=== PATIENT | male | born 2000 | race Caucasian/White ===

== ENCOUNTER 2019-03-17 17:44 | Emergency (ER) | payer BC, SELFPAY ==
--- NOTE | 2019-03-17 19:02 | ER ---
Nurse's Notes [facility] Name: Nic Servin Age: 18 yrs Sex: Male : 2000 Arrival Date: 03/17/2019 Time: 17:45 Bed 19 Private MD: Diagnosis: Streptococcal tonsillitis Presentation: 03/17 17:50 Presenting complaint: Patient states: Sore throat, chest pain, dizziness for the past aj1 week. Reports subjective fever. Transition of care: patient was not received from another setting of care. Onset of symptoms was March 11, 2019. Risk Assessment: Do you want to hurt yourself or someone else? Patient reports no desire to harm self or others. Initial Sepsis Screen: Does the patient meet any 2 criteria? No. Patient's initial sepsis screen is negative. Does the patient have a suspected source of infection? No. Patient's initial sepsis screen is negative. Care prior to arrival: None. 17:50 Method Of Arrival: Ambulatory aj1 17:50 Acuity: MARY LOU 4 aj1 Triage Assessment: 17:51 General: Appears in no apparent distress. comfortable, Behavior is calm, cooperative, aj1 appropriate for age. Pain: Complains of pain in chest, left aspect of posterior pharynx and right aspect of posterior pharynx Pain currently is 8 out of 10 on a pain scale. EENT: Reports sore throat. Neuro: Level of Consciousness is awake, alert, obeys commands. Cardiovascular: Patient's skin is warm and dry. Respiratory: Airway is patent Respiratory effort is even, unlabored, Respiratory pattern is regular, symmetrical. Historical: - Allergies: 17:51 No Known Allergies; aj1 - Home Meds: 17:51 None [Active]; aj1 - PMHx: 17:51 None; aj1 - PSHx: 17:51 None; aj1 - Immunization history:: Flu vaccine is up to date. - Social history:: Smoking status: Patient/guardian denies using tobacco. - Ebola Screening: : Patient denies travel to an Ebola-affected area in the 21 days before illness onset. Screenin:12 Abuse screen: Denies threats or abuse. Nutritional screening: No deficits noted. em Tuberculosis screening: No symptoms or risk factors identified. Fall Risk None identified. Assessment: 18:12 General: Appears in no apparent distress. comfortable, Behavior is calm, cooperative, em Reports fever for 12-24 hours. Pain: Complains of pain in chest and right aspect of posterior pharynx and left aspect of posterior pharynx Pain currently is 8 out of 10 on a pain scale. Neuro: Level of Consciousness is awake, alert, obeys commands, Oriented to person, place, time, situation, Appropriate for age. Cardiovascular: Reports chest pain, Heart tones S1 S2 present Capillary refill < 3 seconds Patient's skin is warm and dry. Respiratory:. Respiratory: Reports cough that is pain with cough Airway is patent Respiratory effort is even, unlabored, Respiratory pattern is regular, symmetrical, Breath sounds are clear bilaterally. GI: Reports nausea, vomiting. Derm: Skin is intact, is healthy with good turgor, Skin is pink, warm \T\ dry. Musculoskeletal: Capillary refill < 3 seconds, Range of motion: intact in all extremities. 18:12 EENT: Nares are clear Oral mucosa is moist. Throat is reddened has enlarged tonsils em Reports difficulty swallowing. 18:15 General: The previous assessment is accurate, call light remains within reach.. ss 19:01 Reassessment: Patient appears in no apparent distress at this time. Patient and/or em family updated on plan of care and expected duration. Pain level reassessed. Patient is alert, oriented x 3, equal unlabored respirations, skin warm/dry/pink. given water for PO challenge. Vital Signs: 17:51 BP 120 / 69; Pulse 96; Resp 16; Temp 99.4; Pulse Ox 100% on R/A; Weight 72.57 kg (R); aj1 Height 5 ft. 11 in. (180.34 cm); Pain 8/10; 17:51 Body Mass Index 22.32 (72.57 kg, 180.34 cm) 1 ED Course: 17:45 Patient arrived in ED. as 17:51 Triage completed. aj1 17:51 Arm band placed on Patient placed in an exam room. aj1 17:53 Qing Ames NP is PHCP. rh1 17:53 Enrrique Garza MD is Attending Physician. 1 17:59 Miles Anand LVN is Primary Nurse. em 18:12 Patient has correct armband on for positive identification. Placed in gown. Bed in low em position. 18:20 Initial lab(s) drawn, by me, sent to lab. Flu and/or RSV swab sent to lab. Strep swab kj1 sent to lab. Inserted saline lock: 22 gauge in right antecubital area, using aseptic technique. 18:36 Chest Single View XRAY In Process Unspecified. EDMS 18:59 X-ray completed. Portable x-ray completed in exam room. Patient tolerated procedure 1 well. 19:15 No provider procedures requiring assistance completed. IV discontinued, intact, em bleeding controlled, No redness/swelling at site. Pressure dressing applied. Administered Medications: No medications were administered Outcome: 19:01 Discharge ordered by . rh1 19:16 Discharged to home ambulatory. em 19:16 Condition: good 19:16 Discharge instructions given to patient, Instructed on discharge instructions, follow up and referral plans. medication usage, Demonstrated understanding of instructions, follow-up care, medications, Prescriptions given X 1. 19:16 Patient left the ED. em Signatures: Dispatcher [employer] [facility] Alyssa Chin RN RN 1 Priscila Buck 1 Miles Anand, INGREDIENT SCALER INGREDIENT SCALER em Muna Mirza Shelby, RN RN Qing Figueredo NP [employer]PER[employer] 1 Shiloh Lucero kj1 Corrections: (The following items were deleted from the chart) 18:43 18:12 Derm: Skin is intact, is healthy with good turgor, Skin is pink, warm \T\ dry. em em
--- NOTE | 2019-03-17 19:03 | EDPHYS ---
Physician Documentation [facility] Name: Nic Servin Age: 18 yrs Sex: Male : 2000 Arrival Date: 03/17/2019 Time: 17:45 Bed 19 Private MD: ED Physician Enrrique Garza HPI: 03/17 17:57 This 18 yrs old Male presents to ER via Ambulatory with complaints of Sore rh1 Throat, Dizziness. 17:57 The patient presents with sore throat. The patient describes throat pain as constant, rh1 scratchy. Onset: The symptoms/episode began/occurred 1 week(s) ago, and became worse today. Severity of symptoms: At their worst the symptoms were moderate, in the emergency department the symptoms are unchanged. Modifying factors: The symptoms are alleviated by nothing, the symptoms are aggravated by foods, swallowing, Patient's oral intake status: good The patient has had contact with sick son, dx with bronchitis. Associated signs and symptoms: Pertinent positives: dysphagia, fever, flu-like symptoms, headache, Sore throat vomiting, Pertinent negatives cough, diarrhea, earache, nausea, rhinorrhea, shortness of breath. The patient has not experienced similar symptoms in the past. The patient has not recently seen a physician. Began with sore throat, fatigue, body aches and chest congestion 1 week ago, worse today. Subjective fever/chills at home. Denies any coughing today, reports feels the need to cough, but has pain in the throat and chest with coughing so does not cough. Reports ERICKSON behind the eyes today, with sensitivity to light, some nausea and emesis x 3 yesterday. Has been drinking liquids today with emesis. Denies any overt chest pain, no SOB, no dyspnea, or hemoptysis. . Historical: - Allergies: 17:51 No Known Allergies; aj1 - Home Meds: 17:51 None [Active]; aj1 - PMHx: 17:51 None; aj1 - PSHx: 17:51 None; aj1 - Immunization history:: Flu vaccine is up to date. - Social history:: Smoking status: Patient/guardian denies using tobacco. - Ebola Screening: : Patient denies travel to an Ebola-affected area in the 21 days before illness onset. ROS: 18:08 Constitutional: Negative for fever, chills, and weight loss. rh1 18:08 Constitutional: Positive for body aches, chills, fatigue, malaise, Negative for poor PO intake. 18:08 Eyes: Negative for acute changes. 18:08 ENT: Positive for sore throat, Negative for nasal discharge, difficulty handling secretions. 18:08 Neck: Negative for pain with movement, pain at rest. 18:08 Cardiovascular: Negative for chest pain, edema, orthopnea, palpitations. 18:08 Respiratory: Positive for cough, Negative for hemoptysis, shortness of breath, wheezing. 18:08 Abdomen/GI: Positive for nausea and vomiting, Negative for abdominal pain, diarrhea. 18:08 Back: Negative for decreased range of motion, pain at rest, pain with movement, radiated pain. 18:08 : Negative for small amounts. 18:08 MS/extremity: Negative for decreased range of motion, pain, paresthesias. 18:08 Skin: Negative for diaphoresis, rash. 18:08 Neuro: Positive for headache, Negative for numbness, tingling, weakness. Exam: 17:57 Constitutional: This is a well developed, well nourished patient who is awake, alert, rh1 and in no acute distress. Head/Face: Normocephalic, atraumatic. 17:57 Neck: Trachea midline, and no cervical lymphadenopathy. Supple, full range of motion without nuchal rigidity. No Meningismus. Chest/axilla: Normal chest wall appearance and motion. Nontender with no deformity. No lesions are appreciated. 17:57 Cardiovascular: Regular rate and rhythm with a normal S1 and S2. No gallops, murmurs, or rubs. No JVD. No pulse deficits. Respiratory: Lungs have equal breath sounds bilaterally, clear to auscultation. No rales, rhonchi or wheezes noted. No increased work of breathing. Abdomen/GI: Soft, non-tender, with normal bowel sounds. No distension. No guarding or rebound. No evidence of tenderness throughout. Back: No spinal tenderness. No costovertebral tenderness. Full range of motion. Skin: Warm, dry with normal turgor. Normal color with no rashes, no lesions, and no evidence of cellulitis. MS/ Extremity: Pulses equal, no cyanosis. Neurovascular intact. Full, normal range of motion. 17:57 ENT: External ear(s): are unremarkable, Ear canal(s): are normal, clear, no cerumen impaction, no erythema, no foreign body, no purulent discharge, no swelling, TM's: are normal, no evidence of bulging, no dullness, no erythema, no fluid levels, Nose: Nasal septum: is midline, Nasal mucosa: edematous, erythematous, Turbinates: are swollen bilaterally, nasal drainage, is not appreciated, Mouth: is normal, no lip abnormalities, no mucosal abnormalities, Posterior pharynx: Airway: normal, Tonsils: bilaterally enlarged, with erythema, no exudate, no ulcerations, Uvula: normal, midline, non-edematous, no erythema, swelling, that is mild, erythema, that is moderate. 17:57 Neck: ROM/movement: Meningeal signs: are not present, Kernig's sign is negative, Brudzinski's sign is negative. 17:57 Neuro: Orientation: is normal, appropriate for stated age, to person, place \T\ time. Mentation: is normal, lucid, able to follow commands, Motor: is normal, moves all fours, strength is 5/5 in all extremities, Sensation: is normal, no obvious gross deficits, numbness, is not appreciated, tingling, is not appreciated, Gait: is steady, at a normal pace, without difficulty. Vital Signs: 17:51 BP 120 / 69; Pulse 96; Resp 16; Temp 99.4; Pulse Ox 100% on R/A; Weight 72.57 kg (R); aj1 Height 5 ft. 11 in. (180.34 cm); Pain 8/10; 17:51 Body Mass Index 22.32 (72.57 kg, 180.34 cm) [facility] MDM: 17:57 Patient medically screened. [facility] 19:01 Data reviewed: vital signs, nurses notes, lab test result(s), and as a result, I will [facility] discharge patient. Data interpreted: Pulse oximetry: on room air is 100 %. Interpretation: normal. Counseling: I had a detailed discussion with the patient and/or guardian regarding: the historical points, exam findings, and any diagnostic results supporting the discharge/admit diagnosis, lab results, radiology results, the need for outpatient follow up, a family practitioner, to return to the emergency department if symptoms worsen or persist or if there are any questions or concerns that arise at home. Special discussion: I discussed with the patient/guardian in detail that at this point there is no indication for admission to the hospital. It is understood, however, that if the symptoms persist or worsen the patient needs to return immediately for re-evaluation. 03/17 18:05 Order name: Flu; Complete Time: 19:00 rh1 03/17 18:05 Order name: Strep; Complete Time: 18:45 rh1 03/17 18:05 Order name: [place] Screen Profile; Complete Time: 19:01 rh1 03/17 18:08 Order name: Chest Single View XRAY rh1 03/17 18:08 Order name: PO challenge; Complete Time: 18:52 rh1 Administered Medications: No medications were administered Disposition: 03/18 07:37 Co-signature as Attending Physician, Enrrique Garza MD. rn Disposition: 03/17/19 19:01 Discharged to Home. Impression: Streptococcal tonsillitis. - Condition is Stable. - Discharge Instructions: Strep Throat. - Prescriptions for Amoxicillin 875 mg Oral Tablet - take 1 tablet by ORAL route every 12 hours for 10 days; 20 tablet. - Medication Reconciliation Form, Thank You Letter, Antibiotic Education, Prescription Opioid Use form. - Follow up: Private Physician; When: 1 - 2 days; Reason: Recheck today's complaints, Continuance of care, Re-evaluation by your physician. Follow up: Emergency Department; When: As needed; Reason: If symptoms return, Worsening of condition. - Problem is new. - Symptoms have improved. Signatures: Dispatcher [employer] Alyssa Ruiz RN RN aj1 Miles Anand, SWIMMING POOL SERVICEPERSON SWIMMING POOL SERVICEPERSON Enrrique Buitrago MD MD rn Jones, Rachel, LLUVIA GRAIN ELEVATOR MAN rh1 Corrections: (The following items were deleted from the chart) 03/17 18:10 17:57 Began with sore throat, fatigue, body aches and chest congestion 1 week ago, rh1 worse today. Subjective fever/chills at home. Denies any coughing today, reports feels the need to cough, but has pain in the throat and chest with coughing so does not cough.. rh1 19: 19:01 Counseling: I had a detailed discussion with the patient and/or guardian 1 regarding: the historical points, exam findings, and any diagnostic results supporting the discharge/admit diagnosis, lab results, the need for outpatient follow up, a family practitioner, to return to the emergency department if symptoms worsen or persist or if there are any questions or concerns that arise at home, rh1 19:16 19:01 03/17/2019 19:01 Discharged to Home. Impression: Streptococcal tonsillitis. em Condition is Stable. Discharge Instructions: Strep Throat. Prescriptions for Amoxicillin 875 mg Oral Tablet - take 1 tablet by ORAL route every 12 hours for 10 days; 20 tablet. and Forms are Medication Reconciliation Form, Thank You Letter, Antibiotic Education, Prescription Opioid Use. Follow up: Private Physician; When: 1 - 2 days; Reason: Recheck today's complaints, Continuance of care, Re-evaluation by your physician. Follow up: Emergency Department; When: As needed; Reason: If symptoms return, Worsening of condition. Problem is new. Symptoms have improved. rh1
--- NOTE | 2019-03-17 19:51 | RAD REPORT ---
EXAM DESCRIPTION: RAD - Chest Single View - 03/17/2019 6:35 pm CLINICAL HISTORY: Chest pain COMPARISON: None. TECHNIQUE: AP portable chest image was obtained 1832 hours . FINDINGS: Lungs are clear. Heart and vasculature are normal. No measurable pleural effusion and no p neumothorax. No acute bony abnormality seen. No acute aortic findings suspected. IMPRESSION: No acute cardiopulmonary process.
[2019-03-17 22:53] VITALS: BP 120/69; TEMP 99.4; O2SAT 100
== END 2019-03-17 19:16 | disposition home or self-care (01) ==
LOC: ER 17:44
DX: J03.00 Acute streptococcal tonsillitis, unspecified (principal)
CPT/HCPCS: 36415; 71045; 86308; 87081; 87804; 99284

== ENCOUNTER 2019-09-24 18:58 | Emergency (ER) | payer SELFPAY ==
--- NOTE | 2019-09-24 20:13 | ER ---
Nurse's Notes [facility] Name: Nic Servin Age: 19 yrs Sex: Male : 2000 Arrival Date: 09/24/2019 Time: 19:09 Bed 26 Private MD: Diagnosis: Acute upper respiratory infection, unspecified Presentation: 09/23 19:17 Chief complaint: Patient states: low grade fever and dry cough started last Tuesday rr5 and it gets worse at night. 19:17 Coronavirus screen: The patient has NOT traveled to a country currently being monitored rr5 by the [facility] within the last 14 days. Proceed with normal triage procedures. Ebola Screen: Patient negative for fever greater than or equal to 101.5 degrees Fahrenheit, and additional compatible Ebola Virus Disease symptoms Patient denies exposure to infectious person. Patient denies travel to an Ebola-affected area in the 21 days before illness onset. Initial Sepsis Screen: Does the patient meet any 2 criteria? No. Patient's initial sepsis screen is negative. Does the patient have a suspected source of infection? Yes: Productive cough/pneumonia. Risk Assessment: Do you want to hurt yourself or someone else? Patient reports no desire to harm self or others. 19:17 Method Of Arrival: Ambulatory rr5 19:17 Acuity: MARY LOU 4 rr5 Historical: - Allergies: 19:19 No Known Allergies; rr5 - Home Meds: 19:19 None [Active]; rr5 - PMHx: 19:19 None; rr5 - PSHx: 19:19 None; rr5 - Immunization history:: Adult Immunizations up to date. - Social history:: Smoking status: Reported history of juuling and/or vaping. Patient uses alcohol, occasionally. Patient/guardian denies using street drugs. Screenin:22 Abuse screen: Denies threats or abuse. Nutritional screening: No deficits noted. lc1 Tuberculosis screening: No symptoms or risk factors identified. Fall Risk None identified. Assessment: 20:22 General: Appears in no apparent distress. Behavior is calm, cooperative, appropriate lc1 for age. Pain: Denies pain. Neuro: No deficits noted. Cardiovascular: No deficits noted. Respiratory: No deficits noted. Respiratory: Reports cough that is non-productive, dry, hacking, persistent Breath sounds are clear bilaterally. GI: No signs and/or symptoms were reported involving the gastrointestinal system. : No signs and/or symptoms were reported regarding the genitourinary system. EENT: No signs and/or symptoms were reported regarding the EENT system. Derm: No signs and/or symptoms reported regarding the dermatologic system. Musculoskeletal: No signs and/or symptoms reported regarding the musculoskeletal system. Vital Signs: 19:17 BP 127 / 87; Pulse 82; Resp 17; Temp 98; Pulse Ox 98% ; Weight 68.04 kg; Height 5 ft. rr5 10 in. (177.80 cm); Pain 0/10; 20:33 BP 120 / 85; Pulse 16; Resp 14; Temp 98.1; Pulse Ox 99% ; Pain 0/10; ls4 19:17 Body Mass Index 21.52 (68.04 kg, 177.80 cm) rr5 ED Course: 19:09 Patient arrived in ED. ag3 19:13 Pj Whitmore MD is Attending Physician. tw4 19:18 Triage completed. rr5 19:18 Arm band placed on right wrist. rr5 19:24 Flu and/or RSV swab sent to lab. Strep swab sent to lab. lt1 19:24 Strep Sent. lt1 19:24 Flu Sent. lt1 20:22 Patient has correct armband on for positive identification. Bed in low position. Call lc1 light in reach. 20:22 No provider procedures requiring assistance completed. Patient did not have IV access lc1 during this emergency room visit. Administered Medications: No medications were administered Outcome: 20:12 Discharge ordered by . tw4 20:35 Discharged to home ambulatory. ls4 20:35 Condition: good 20:35 Discharge instructions given to patient, Instructed on discharge instructions, follow up and referral plans. medication usage, Demonstrated understanding of instructions, follow-up care, medications. 20:36 Patient left the ED. ls4 Signatures: Rolanda Huggins lc1 Pj Whitmore MD MD tw4 Anya Gutierrez ag3 Rolanda Nelson RN RN ls4 Winston Malcolm RN RN rr5 Brittani Medina lt1
--- NOTE | 2019-09-24 20:14 | EDPHYS ---
Physician Documentation [facility] Name: Nic Servin Age: 19 yrs Sex: Male : 2000 Arrival Date: 09/24/2019 Time: 19:09 Bed 26 Private MD: ED Physician Pj Whitmore HPI: 09/24 00:30 This 19 yrs old Male presents to ER via Ambulatory with complaints of Fever, tw4 Cough. 00:30 The patient reports fever, not measured (subjective). tw4 00:31 Onset: The symptoms/episode began/occurred 2 day(s) ago. Modifying factors: there are tw4 no obvious modifying factors. Severity of symptoms: At their worst the symptoms were mild in the emergency department the symptoms are unchanged. The patient has not experienced similar symptoms in the past. Historical: - Allergies: 09/23 19:19 No Known Allergies; rr5 - Home Meds: 19:19 None [Active]; rr5 - PMHx: 19:19 None; rr5 - PSHx: 19:19 None; rr5 - Immunization history:: Adult Immunizations up to date. - Social history:: Smoking status: Reported history of juuling and/or vaping. Patient uses alcohol, occasionally. Patient/guardian denies using street drugs. ROS: 09/24 00:31 Constitutional: Negative for fever, chills, and weight loss, Eyes: Negative for injury, tw4 pain, redness, and discharge, Neck: Negative for injury, pain, and swelling, Cardiovascular: Negative for chest pain, palpitations, and edema, Abdomen/GI: Negative for abdominal pain, nausea, vomiting, diarrhea, and constipation, Back: Negative for injury and pain, MS/Extremity: Negative for injury and deformity. Respiratory: Positive for cough, with no reported sputum. Exam: 00:31 Constitutional: This is a well developed, well nourished patient who is awake, alert, tw4 and in no acute distress. Head/Face: Normocephalic, atraumatic. Chest/axilla: Normal chest wall appearance and motion. Nontender with no deformity. No lesions are appreciated. Cardiovascular: Regular rate and rhythm with a normal S1 and S2. No gallops, murmurs, or rubs. Normal PMI, no JVD. No pulse deficits. 00:31 Abdomen/GI: Soft, non-tender, with normal bowel sounds. No distension or tympany. No guarding or rebound. No evidence of tenderness throughout. Skin: Warm, dry with normal turgor. Normal color with no rashes, no lesions, and no evidence of cellulitis. MS/ Extremity: Pulses equal, no cyanosis. Neurovascular intact. Full, normal range of motion. 00:31 Respiratory: the patient does not display signs of respiratory distress, Respirations: normal, Breath sounds: wheezing: that is mild. Vital Signs: 09/23 19:17 BP 127 / 87; Pulse 82; Resp 17; Temp 98; Pulse Ox 98% ; Weight 68.04 kg; Height 5 ft. rr5 10 in. (177.80 cm); Pain 0/10; 20:33 BP 120 / 85; Pulse 16; Resp 14; Temp 98.1; Pulse Ox 99% ; Pain 0/10; ls4 19:17 Body Mass Index 21.52 (68.04 kg, 177.80 cm) rr5 MDM: 19:36 Patient medically screened. tw4 09/24 00:31 Differential diagnosis: viral Infection, bacterial infection, URI. Data reviewed: vital tw4 signs, nurses notes. Data reviewed: lab test result(s), Flu: negative radiologic studies. Data interpreted: Pulse oximetry: Interpretation:. Counseling: I had a detailed discussion with the patient and/or guardian regarding: the historical points, exam findings, and any diagnostic results supporting the discharge/admit diagnosis. Special discussion: I discussed with the patient/guardian in detail that at this point there is no indication for admission to the hospital. It is understood, however, that if the symptoms persist or worsen the patient needs to return immediately for re-evaluation. 00:35 Medication response: albuterol nebulizer treatment(s) relieved the patient's symptoms. tw4 The patient is no longer wheezing. Response to treatment: the patient's symptoms have markedly improved after treatment, and as a result, I will discharge patient. 09/23 19:13 Order name: Flu; Complete Time: 20:09 tw4 09/23 20:09 Interpretation: Within normal limits. tw4 09/23 19:13 Order name: Strep; Complete Time: 20:09 tw4 09/23 20:09 Interpretation: Within normal limits. tw4 09/23 20:02 Order name: Throat Culture EDMS Administered Medications: No medications were administered Disposition: 09/24/19 20:12 Discharged to Home. Impression: Acute upper respiratory infection, unspecified. - Condition is Stable. - Discharge Instructions: Upper Respiratory Infection, Adult, Viral Respiratory Infection, [id number]. - Medication Reconciliation Form, Thank You Letter, Antibiotic Education, Prescription Opioid Use, Work release form form. - Follow up: Private Physician; When: Upon discharge from the Emergency Department; Reason: Recheck today's complaints, Continuance of care, Re-evaluation by your physician. - Problem is new. - Symptoms have improved. Signatures: Dispatcher [employer] EDIA Pj Whitmore MD MD tw4 Rolanda Nelson RN RN ls4 Winston Malcolm RN RN rr5 Corrections: (The following items were deleted from the chart) 09/23 20:36 20:12 09/24/2019 20:12 Discharged to Home. Impression: Acute upper respiratory ls4 infection, unspecified. Condition is Stable. Forms are Medication Reconciliation Form, Thank You Letter, Antibiotic Education, Prescription Opioid Use. Follow up: Private Physician; When: Upon discharge from the Emergency Department; Reason: Recheck today's complaints, Continuance of care, Re-evaluation by your physician. Problem is new. Symptoms have improved. tw4
[2019-09-24 21:29] VITALS: BP 120/85; TEMP 98.1; O2SAT 99
== END 2019-09-24 20:36 | disposition home or self-care (01) ==
LOC: ER 18:58
DX: J06.9 Acute upper respiratory infection, unspecified (principal)
CPT/HCPCS: 87070; 87081; 87804; 99283

== ENCOUNTER 2020-07-20 10:18 | Emergency (ER) | payer SELFPAY ==
--- NOTE | 2020-07-20 11:32 | RAD REPORT ---
EXAM DESCRIPTION: RAD - Chest Single View - 07/20/2020 10:45 am CLINICAL HISTORY: CHEST PAIN Chest pain. COMPARISON: Chest Single View dated 03/17/2019 FINDINGS: Portable technique limits examination quality. The lungs are grossly clear. The heart is normal in size. No displaced fractures. IMPRESSION: No acute intrathoracic process suspected.
[2020-07-20 13:38] LABS: SARS-COV-2 RT PCR NEGATIVE (NEGATIVE)
--- NOTE | 2020-07-20 13:46 | EDPHYS ---
Physician Documentation [facility] Name: Nic Servin Age: 19 yrs Sex: Male : 2000 Arrival Date: 07/20/2020 Time: 10:19 Bed 6 Private MD: ED Physician Enrrique Garza HPI: 07/20 10:31 This 19 yrs old Male presents to ER via Ambulatory with complaints of Chest rn Pain, Breathing Difficulty. 10:31 The patient or guardian reports chest pain that is located primarily in the chest rn diffusely. The pain does not radiate. Associated signs and symptoms: Pertinent positives: cough, shortness of breath, Pertinent negatives: lower extremity swelling, recent travel, syncope, vomiting. The chest pain is described as dull. Duration: The patient or guardian reports a single episode, that is still ongoing. Modifying factors: The symptoms are alleviated by nothing. the symptoms are aggravated by breathing, cough. Severity of pain: At its worst the pain was moderate in the emergency department the pain is unchanged. The patient has not experienced similar symptoms in the past. The patient has not recently seen a physician. Reports chest pain, dull, began 2 days ago, assoc with mild cough and feels like can't take deep breath. No fever, + nasal congestion and runny nose, no hemoptysis, no trauma. No change in smell/taste. . Historical: - Allergies: 10:29 Mucinex; ca1 10:29 Mucinex D; ca1 - Home Meds: 10:29 None [Active]; ca1 - PMHx: 10:29 None; ca1 - PSHx: 10:29 None; ca1 - Immunization history:: Flu vaccine is not up to date. - Social history:: Smoking status: Reported history of juuling and/or vaping. - Family history:: not pertinent. - Hospitalizations: : No recent hospitalization is reported. ROS: 10:31 Constitutional: Negative for fever, chills, and weight loss, Eyes: Negative for injury, rn pain, redness, and discharge, ENT: + nasal congestion Neck: Negative for injury, pain, and swelling, Cardiovascular: Negative for palpitations, and edema, Respiratory: Negative for wheezing, and pleuritic chest pain, Abdomen/GI: Negative for abdominal pain, nausea, vomiting, diarrhea, and constipation, Back: Negative for injury and pain, MS/Extremity: Negative for injury and deformity, Skin: Negative for injury, rash, and discoloration, Neuro: Negative for headache, weakness, numbness, tingling, and seizure. Exam: 10:31 Constitutional: This is a well developed, well nourished patient who is awake, alert, rn and in no acute distress. Ambulatory to room without difficulty or assistance. Head/Face: Normocephalic, atraumatic. ENT: NO stridor. Cardiovascular: Regular rate and rhythm. No pulse deficits. Respiratory: Speaking full sentences. UNlabored. No increased work of breathing, no retractions or nasal flaring. Skin: Warm, dry MS/ Extremity: Pulses equal, no cyanosis. Neuro: Awake and alert, GCS 15 10:47 ECG was reviewed by the Attending Physician. rn Vital Signs: 10:27 BP 113 / 79; Pulse 81; Resp 17; Temp 97.3(TE); Pulse Ox 98% on R/A; Weight 77.11 kg ca1 (R); Height 5 ft. 11 in. (180.34 cm) (R); Pain 810; 10:27 Body Mass Index 23.71 (77.11 kg, 180.34 cm) ca1 MDM: 10:22 Patient medically screened. rn 13:43 Differential diagnosis: acute pericarditis, anxiety, chest wall pain, costochondritis, rn pleurisy, pneumonia, pneumothorax, COVID, Flu. Data reviewed: vital signs, nurses notes, lab test result(s), radiologic studies, plain films, and as a result, I will discharge patient. Counseling: I had a detailed discussion with the patient and/or guardian regarding: the historical points, exam findings, and any diagnostic results supporting the discharge/admit diagnosis, lab results, radiology results, the need for outpatient follow up, to return to the emergency department if symptoms worsen or persist or if there are any questions or concerns that arise at home. Special discussion: I discussed with the patient/guardian in detail that at this point there is no indication for admission to the hospital. It is understood, however, that if the symptoms persist or worsen the patient needs to return immediately for re-evaluation. ED course: Sleeping comfortably, normal vitals, cxr neg, covid and flu neg. . 07/20 10:31 Order name: XRAY Chest (1 view); Complete Time: 11:32 rn 07/20 10:31 Order name: EKG; Complete Time: 10:31 rn 07/20 10:31 Order name: EKG - Nurse/Tech; Complete Time: 10:52 rn 07/20 13:38 Order name: COVID-19/FLU A+B; Complete Time: 13:42 EDMS EC:47 Rate is 80 beats/min. Rhythm is regular. QRS [place] is Normal. [place] interval is normal. QRS rn interval is normal. QT interval is normal. No Q waves. T waves are Normal. No ST changes noted. Clinical impression: Normal ECG. Interpreted by me. Reviewed by me. Administered Medications: No medications were administered Disposition: 07/20/20 13:45 Discharged to Home. Impression: Chest pain, unspecified. - Condition is Stable. - Discharge Instructions: Nonspecific Chest Pain. - Prescriptions for Albuterol Sulfate 90 mcg/actuation - inhale 1-2 puff by INHALATION route every 4-6 hours; 1 Inhaler. - Medication Reconciliation Form, Thank You Letter, Antibiotic Education, Prescription Opioid Use form. - Follow up: Private Physician; When: As needed; Reason: Recheck today's complaints, Re-evaluation by your physician. - Problem is new. - Symptoms have improved. Signatures: Dispatcher [employer] [facility] Enrrique Garza MD MD rn Leal, Jahala RN RN jl7 Sandra Hdz RN RN ca1 Corrections: (The following items were deleted from the chart) 12:30 10:32 CORONAVIRUS+MR.LAB.BRZ ordered. [facility] EDTN 13:52 13:45 07/20/2020 13:45 Discharged to Home. Impression: Chest pain, unspecified. jl7 Condition is Stable. Forms are Medication Reconciliation Form, Thank You Letter, Antibiotic Education, Prescription Opioid Use. Follow up: Private Physician; When: As needed; Reason: Recheck today's complaints, Re-evaluation by your physician. Problem is new. Symptoms have improved. rn
--- NOTE | 2020-07-20 13:46 | ER ---
Nurse's Notes [facility] Name: Nic Servin Age: 19 yrs Sex: Male : 2000 Arrival Date: 07/20/2020 Time: 10:19 Bed 6 Private MD: Diagnosis: Chest pain, unspecified Presentation: 07/20 10:27 Chief complaint: Patient states: Chest pain, constant, started yesterday morning. Hurts ca1 to breathe and can barely breathe. Denies cough. Denies injury to chest. Coronavirus screen: Client denies travel out of the [place] in the last 14 days. difficulty breathing, Client presents with at least one sign or symptom that may indicate coronavirus-19. Standard/surgical mask placed on the client. Provider contacted for isolation considerations. Ebola Screen: Patient negative for fever greater than or equal to 101.5 degrees Fahrenheit, and additional compatible Ebola Virus Disease symptoms Patient denies exposure to infectious person. Patient denies travel to an Ebola-affected area in the 21 days before illness onset. No symptoms or risks identified at this time. Initial Sepsis Screen: Does the patient meet any 2 criteria? No. Patient's initial sepsis screen is negative. Does the patient have a suspected source of infection? No. Patient's initial sepsis screen is negative. Risk Assessment: Do you want to hurt yourself or someone else? Patient reports no desire to harm self or others. Onset of symptoms was July 19, 2020. 10:27 Method Of Arrival: Ambulatory ca1 10:27 Acuity: MARY LOU 3 ca1 Triage Assessment: 10:29 General: Appears in no apparent distress. uncomfortable, Behavior is anxious. Pain: ca1 Complains of pain in chest Pain currently is 8 out of 10 on a pain scale. Pain began 1 day ago. Is continuous. Historical: - Allergies: 10:29 Mucinex; ca1 10:29 Mucinex D; ca1 - Home Meds: 10:29 None [Active]; ca1 - PMHx: 10:29 None; ca1 - PSHx: 10:29 None; ca1 - Immunization history:: Flu vaccine is not up to date. - Social history:: Smoking status: Reported history of juuling and/or vaping. - Family history:: not pertinent. - Hospitalizations: : No recent hospitalization is reported. Screenin:55 Abuse screen: Denies threats or abuse. Nutritional screening: No deficits noted. jd3 Tuberculosis screening: No symptoms or risk factors identified. Fall Risk Ambulatory Aid- None/Bed Rest/Nurse Assist (0 pts). Gait- Normal/Bed Rest/Wheelchair (0 pts) Mental Status- Oriented to own ability (0 pts). Total Sainz Fall Scale indicates No Risk (0-24 pts). Assessment: 10:52 General: Appears in no apparent distress. uncomfortable, Behavior is calm, cooperative, jd3 appropriate for age. Pain: Complains of pain in chest Pain does not radiate. Quality of pain is described as aching, pressure. Neuro: Level of Consciousness is awake, alert, obeys commands, Oriented to person, place, time, situation. Cardiovascular: Heart tones present Capillary refill < 3 seconds Rhythm is regular. Respiratory: Reports shortness of breath at rest Airway is patent Respiratory effort is even, unlabored, Respiratory pattern is regular, symmetrical, Breath sounds are clear bilaterally. GI: No signs and/or symptoms were reported involving the gastrointestinal system. : No signs and/or symptoms were reported regarding the genitourinary system. EENT: No signs and/or symptoms were reported regarding the EENT system. Derm: Skin is intact, Skin is dry, Skin is normal, Skin temperature is warm. Musculoskeletal: Circulation, motion, and sensation intact. Range of motion: intact in all extremities. 12:12 Reassessment: Patient appears in no apparent distress at this time. Patient and/or jd3 family updated on plan of care and expected duration. Pain level reassessed. Patient is alert, oriented x 3, equal unlabored respirations, skin warm/dry/pink. awaiting results. Vital Signs: 10:27 BP 113 / 79; Pulse 81; Resp 17; Temp 97.3(TE); Pulse Ox 98% on R/A; Weight 77.11 kg ca1 (R); Height 5 ft. 11 in. (180.34 cm) (R); Pain 8/10; 10:27 Body Mass Index 23.71 (77.11 kg, 180.34 cm) ca1 ED Course: 10:19 Patient arrived in ED. ag5 10:22 Enrrique Garza MD is Attending Physician. rn 10:28 Triage completed. ca1 10:29 Arm band placed on right wrist. ca1 10:45 XRAY Chest (1 view) In Process Unspecified. EDMS 10:46 Vernon Mcrae, RN is Primary Nurse. jd3 10:52 Flu Sent. jd3 10:55 Patient has correct armband on for positive identification. Bed in low position. Call j light in reach. Side rails up X 1. figure skater on. Pulse ox on. NIBP on. 10:55 Patient maintains SpO2 saturation greater than 95% on room air. jd3 13:52 No provider procedures requiring assistance completed. Patient did not have IV access jl7 during this emergency room visit. Administered Medications: No medications were administered Outcome: 13:45 Discharge ordered by . rn 13:52 Discharged to home ambulatory. jl7 13:52 Condition: stable 13:52 Discharge instructions given to patient, Instructed on discharge instructions, follow up and referral plans. medication usage, Demonstrated understanding of instructions, follow-up care, medications, Prescriptions given X 1. 13:52 [facility] Signatures: Dispatcher [employer] EDMS nErrique Garza MD MD rn Leal, Jahala, RN RN jl7 Davies, Jonathon, ANA PEREZ jSandra Staton RN RN ca1 Chloé, Hamida ag5 Corrections: (The following items were deleted from the chart) 12:30 10:52 CORONAVIRUS+MR.MADDIE drawn and sent. [facility] EDCO
[2020-07-20 13:58] VITALS: BP 113/79; TEMP 97.3; O2SAT 98
--- NOTE | 2020-07-21 07:22 | EKG ---
Test Date: 2020-07-20 Test Time: 10:33:45 [employer]: LORENZO MEASUREMENT RESULTS: Intervals: Rate: 80 WI: 122 QRSD: 94 QT: 322 QTc: 371 Cannon: P: 56 WI: 122 QRS: 60 T: 52 INTERPRETIVE STATEMENTS: Normal sinus rhythm Normal ECG Compared to ECG 07/31/2005 09:53:53 Sinus arrhythmia no longer present Electronically Signed On 07-21-20 07:20:31 AMALGAMATOR by Fermin Hogan
== END 2020-07-20 13:52 | disposition home or self-care (01) ==
LOC: ER 10:18
DX: R07.9 Chest pain, unspecified (principal); Z20.822 Contact with and (suspected) exposure to COVID-19; Z88.8 Allergy status to other drugs, medicaments and biological substances
CPT/HCPCS: 0240U; 71045; 93005; 99285

== ENCOUNTER 2021-05-09 11:51 | Emergency (ER) | payer SELFPAY ==
[2021-05-09] MEDS ORDERED: KETOROLAC 30 MG/ML INJ ONE (13:40)
--- NOTE | 2021-05-09 13:47 | RAD REPORT ---
EXAM DESCRIPTION: Gilberto Single View05/09/2021 1:12 pm CLINICAL HISTORY: Chest pain COMPARISON: July 2020 FINDINGS: The lungs appear clear of acute infiltrate. The heart is normal size IMPRESSION: No acute abnormalities displayed
--- NOTE | 2021-05-09 14:04 | EDPHYS ---
Physician Documentation [facility] Name: Nic Servin Age: 20 yrs Sex: Male : 2000 Arrival Date: 05/09/2021 Time: 11:53 Bed 12 Private MD: ED Physician Lio Sanon HPI: 05/09 12:34 This 20 yrs old Male presents to ER via Ambulatory with complaints of Back jmm Pain, Rib Pain. 12:34 Onset: The symptoms/episode began/occurred gradually, 5 month(s) ago. The pain does not jmm radiate. This is a this is a 20-year-old male with no chronic medical conditions presents emerged part with complaints of right sided chest wall pain which will occasionally radiate to the left side. Symptoms have been ongoing for approximately 5 months now. Normally symptoms are alleviated when performing strenuous activity but resume whenever he is resting. Denies cough, congestion, fever, chills. Denies hemoptysis, leg swelling, history of any cancer treatment, denies recent surgery. Patient does not take any prescribed medications.. Historical: - Allergies: 11:57 NKDA; aa5 - PMHx: 11:57 None; aa5 - PSHx: 11:57 None; aa5 - Immunization history:: Client reports receiving the 2nd dose of the Covid vaccine. - Social history:: Smoking status: Reported history of juuling and/or vaping. ROS: 12:34 Constitutional: Negative for fever, chills, and weight loss. jmm 12:34 Respiratory: Negative for shortness of breath, cough, wheezing, and pleuritic chest pain, Abdomen/GI: Negative for abdominal pain, nausea, vomiting, diarrhea, and constipation, Back: Negative for injury and pain. 12:34 Cardiovascular: Positive for chest pain, of the chest. 12:34 All other systems are negative. Exam: 12:34 Constitutional: This is a well developed, well nourished patient who is awake, alert, jmm and in no acute distress. Head/Face: atraumatic. Eyes: EOMI, no conjunctival erythema appreciated ENT: Moist Mucus Membranes Neck: Trachea midline, Supple 12:34 Cardiovascular: Regular rate and rhythm. No edema appreciated Respiratory: Normal respirations, no respiratory distress appreciated Abdomen/GI: Non distended, soft Back: Normal ROM Skin: General appearance color normal MS/ Extremity: Moves all extremities, no obvious deformities appreciated, no edema noted to the lower extremities Neuro: Awake and alert, normal gait Psych: Behavior is normal, Mood is normal, Patient is cooperative and pleasant 12:34 Chest/axilla: Palpation: tenderness, that is moderate, of the right lateral anterior chest and right lateral posterior chest, that totally reproduces the patient's complaints. Vital Signs: 11:56 BP 130 / 84; Pulse 90; Resp 18 S; Temp 97.4(TE); Pulse Ox 100% on R/A; Weight 70.31 kg aa5 (R); Height 5 ft. 11 in. (180.34 cm) (R); 11:56 Body Mass Index 21.62 (70.31 kg, 180.34 cm) aa5 MDM: 12:34 Patient medically screened. flavio 14:01 Data reviewed: vital signs, nurses notes. Counseling: I had a detailed discussion with nathan the patient and/or guardian regarding: the historical points, exam findings, and any diagnostic results supporting the discharge/admit diagnosis, radiology results, the need for outpatient follow up, to return to the emergency department if symptoms worsen or persist or if there are any questions or concerns that arise at home. ED course: PERC criteria is negative. Chest x-ray clear. Patient is nontoxic and afebrile. I do not currently suspect an infectious process, I do not suspect pulmonary embolism. Appears to be musculoskeletal. Pain is reproducible. Will treat with oral muscle relaxers and advised follow-up PCP patient otherwise given strict return precautions.. 05/09 12:36 Order name: Chest Single View XRAY; Complete Time: 13:50 nathan Administered Medications: 12:44 Drug: Ketorolac 30 mg Route: IM; Site: right gluteus; aa5 14:31 Follow up: Response: No adverse reaction; Marked relief of symptoms ss Disposition Summary: 05/09/21 14:03 Discharge Ordered Location: Home nathan Condition: Stable nathan Diagnosis - Chest Wall Pain nathan Followup: nathan - With: Private Physician - When: 2 - 3 days - Reason: Recheck today's complaints, Continuance of care, Re-evaluation by your physician Discharge Instructions: - Discharge Summary Sheet nathan - Chest Wall Pain nathan Forms: - Medication Reconciliation Form [facility] - Thank You Letter jmm - Antibiotic Education [facility] - Prescription Opioid Use [facility] Prescriptions: - Ibuprofen 800 mg Oral Tablet - take 1 tablet by ORAL route every 8 hours As needed take with food; 30 tablet; [facility] Refills: 0, Product Selection Permitted - orphenadrine citrate 100 mg Oral Tablet Sustained Release - take 1 tablet by ORAL route 2 times per day As needed; 20 tablet; Refills: 0, [facility] Product Selection Permitted Addendum: 05/11/2021 23:05 Co-signature as Attending Physician, Lio calero a2 Signatures: Dispatcher [employer] EDMS Renato Zamudio PA PA jmm Calderon, Audri RN RN aa5 Lio Sanon MD MD ma2 Shelley Dover RN ss Corrections: (The following items were deleted from the chart) 05/09 11:58 11:57 Allergies: Mucinex; aa5 aa5
--- NOTE | 2021-05-09 14:04 | ER ---
Nurse's Notes [facility] Name: Nic Servin Age: 20 yrs Sex: Male : 2000 Arrival Date: 05/09/2021 Time: 11:53 Bed 12 Private MD: Diagnosis: Chest Wall Pain Presentation: 05/09 11:56 Chief complaint: Patient states: back pain and rib pain that began approximately 5 aa5 months ago. Coronavirus screen: At this time, the client does not indicate any symptoms associated with coronavirus-19. Ebola Screen: No symptoms or risks identified at this time. Initial Sepsis Screen: Does the patient meet any 2 criteria? No. Patient's initial sepsis screen is negative. Does the patient have a suspected source of infection? No. Patient's initial sepsis screen is negative. Risk Assessment: Do you want to hurt yourself or someone else? Patient reports no desire to harm self or others. Onset of symptoms was 2020. 11:56 Method Of Arrival: Ambulatory aa5 11:56 Acuity: MARY LOU 4 aa5 Historical: - Allergies: 11:57 NKDA; aa5 - PMHx: 11:57 None; aa5 - PSHx: 11:57 None; aa5 - Immunization history:: Client reports receiving the 2nd dose of the Covid vaccine. - Social history:: Smoking status: Reported history of juuling and/or vaping. Screenin:04 Abuse screen: Denies threats or abuse. Denies injuries from another. Nutritional ss screening: No deficits noted. Tuberculosis screening: Never had TB. Fall Risk None identified. Assessment: 12:02 General: Appears comfortable, Behavior is calm, cooperative. Pain: Complains of pain in aa5 whole back and lateral aspect of blas rib cage Pain currently is 0 out of 10 on a pain scale. Is intermittent, Aggravated by rest, pt states "when I am moving and on the go it doesn't hurt but when I cool down and just sit there it starts hurting again". Neuro: Level of Consciousness is awake, alert, obeys commands, Oriented to person, place, time, situation. Cardiovascular: Patient's skin is warm and dry. Respiratory: Airway is patent Respiratory effort is even, unlabored, Respiratory pattern is regular, symmetrical. GI: No signs and/or symptoms were reported involving the gastrointestinal system. : No signs and/or symptoms were reported regarding the genitourinary system. EENT: No signs and/or symptoms were reported regarding the EENT system. Derm: Skin is pink, warm \\T\\ dry. Musculoskeletal: Range of motion: intact in all extremities. 12:44 Reassessment: Patient is alert, oriented x 3, equal unlabored respirations, skin aa5 warm/dry/pink. Awaiting x-ray. Vital Signs: 11:56 BP 130 / 84; Pulse 90; Resp 18 S; Temp 97.4(TE); Pulse Ox 100% on R/A; Weight 70.31 kg aa5 (R); Height 5 ft. 11 in. (180.34 cm) (R); 11:56 Body Mass Index 21.62 (70.31 kg, 180.34 cm) aa5 ED Course: 11:53 Patient arrived in ED. as 11:56 Arm band placed on. aa5 11:57 Triage completed. aa5 11:59 Renato Zamudio PA is PHCP. [facility] 11:59 Lio Sanon MD is Attending Physician. [facility] 12:04 Patient has correct armband on for positive identification. Bed in low position. Call ss light in reach. 12:05 Leah Weinstein, RN is Primary Nurse. [facility] 13:12 Chest Single View XRAY In Process Unspecified. EDMS 14:27 No provider procedures requiring assistance completed. Patient did not have IV access ss during this emergency room visit. Administered Medications: 12:44 Drug: Ketorolac 30 mg Route: IM; Site: right gluteus; aa5 14:31 Follow up: Response: No adverse reaction; Marked relief of symptoms ss Outcome: 14:03 Discharge ordered by . [facility] 14:29 Discharged to home ambulatory. ss 14:29 Condition: good 14:29 Discharge instructions given to patient, Instructed on discharge instructions, follow up and referral plans. medication usage, Demonstrated understanding of instructions, follow-up care, medications, Prescriptions given X 2. 14:30 Patient left the ED. ss Signatures: Dispatcher [employer] EDMS Renato Zamudio PA PA Muna Walters Audri, RN ANA aa5 Shelley Dover RN RN ss Corrections: (The following items were deleted from the chart) 11:58 11:57 Allergies: Mucinex; aa5 aa5
[2021-05-09 14:44] VITALS: BP 130/84; TEMP 97.4; O2SAT 100
== END 2021-05-09 14:30 | disposition home or self-care (01) ==
LOC: ER 11:51
DX: R07.89 Other chest pain (principal)
CPT/HCPCS: 71045; 96372; 99283

== ENCOUNTER 2022-07-28 19:38 | Emergency (ER) | payer SELFPAY ==
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
[2022-07-28 21:25] LABS: Urine Blood Negative (Negative); Urine Glucose Negative (Negative); Urine Protein Negative (Negative); Urine Specific Gravity 1.025 (1.005-1.030)
--- NOTE | 2022-07-28 21:27 | RAD REPORT ---
EXAM DESCRIPTION: Gilberto Smart And Savita (2 Views)07/28/2022 9:17 pm CLINICAL HISTORY: Chest pain COMPARISON: 2020 FINDINGS: The lungs appear clear of acute infiltrate. The heart is normal size IMPRESSION: No acute abnormalities displayed
--- NOTE | 2022-07-28 21:36 | ER ---
Nurse's Notes [facility] Name: Nic Servin Age: 21 yrs Sex: Male : 2000 Arrival Date: 07/28/2022 Time: 19:42 Bed 13 Private MD: Diagnosis: Costochondritis;Volume depletion, unspecified Presentation: 07/28 20:08 Chief complaint: Patient states: I just wanted to come get my breathing checked. I have kd3 been working a lot and i do vape. I had a ladder incident were i was positioned weird for a long period of time, so it could just be that im sore and when i take a breath it just hurts. but i wasn't sure. Coronavirus screen: Vaccine status: Patient reports receiving the 2nd dose of the covid vaccine. Ebola Screen: No symptoms or risks identified at this time. Initial Sepsis Screen: Does the patient meet any 2 criteria? No. Patient's initial sepsis screen is negative. Does the patient have a suspected source of infection? No. Patient's initial sepsis screen is negative. Risk Assessment: Do you want to hurt yourself or someone else? Patient reports no desire to harm self or others. Onset of symptoms was July 28, 2022. 20:08 Method Of Arrival: Ambulatory kd3 20:08 Acuity: MARY LOU 4 kd3 Triage Assessment: 20:09 General: Appears in no apparent distress. Behavior is calm, cooperative. Pain: kd3 Complains of pain in back and chest. Neuro: Level of Consciousness is awake, alert, obeys commands, Oriented to person, place, time, situation. Respiratory: Reports pain with respiration Onset: The symptoms/episode began/occurred yesterday, the patient has mild shortness of breath. Historical: - Allergies: 20:09 NKDA; kd3 - Immunization history:: Adult Immunizations up to date. - Social history:: Smoking status: Reported history of juuling and/or vaping. Screenin:45 [facility] ED Fall Risk Assessment (Adult) History of falling in the last 3 months, jb4 including since admission No falls in past 3 months (0 pts) Confusion or Disorientation No (0 pts) Intoxicated or Sedated No (0 pts) Impaired Gait No (0 pts) Mobility Assist Device Used No (0 pt) Altered Elimination No (0 pt) Score/Fall Risk Level 0 - 2 = Low Risk Oriented to surroundings, Maintained a safe environment. Abuse screen: Denies threats or abuse. Nutritional screening: No deficits noted. Tuberculosis screening: No symptoms or risk factors identified. Assessment: 20:13 General: "I actually don't want to be seen. I think its mild. I would like to leave." kd3 patient encouraged to stay and be checked by a provider. Pt refuse. . 20:15 General: after education, pt decided to stay. Pt updated on estimated wait time. . kd3 20:45 General: Appears in no apparent distress. uncomfortable, Behavior is calm, cooperative, jb4 appropriate for age. Pain: Complains of pain in back and chest Pain does not radiate. Pain currently is 8 out of 10 on a pain scale. Quality of pain is described as sharp, throbbing. Neuro: Level of Consciousness is awake, alert, obeys commands, Oriented to person, place, time, situation. Cardiovascular: Patient's skin is warm and dry. Respiratory: Airway is patent Respiratory effort is even, unlabored, Respiratory pattern is regular, symmetrical. GI: No signs and/or symptoms were reported involving the gastrointestinal system. : No signs and/or symptoms were reported regarding the genitourinary system. EENT: No signs and/or symptoms were reported regarding the EENT system. Derm: Skin is intact, Skin is pink, warm \\T\\ dry. Musculoskeletal: 21:30 Reassessment: Patient appears in no apparent distress at this time. Patient and/or jb4 family updated on plan of care and expected duration. Pain level reassessed. Patient is alert, oriented x 3, equal unlabored respirations, skin warm/dry/pink. Vital Signs: 20:07 BP 115 / 79; Pulse 77; Resp 16; Temp 98.1(O); Pulse Ox 98% on R/A; Weight 68.04 kg; kd3 Height 5 ft. 11 in. (180.34 cm); 20:07 Body Mass Index 20.92 (68.04 kg, 180.34 cm) kd3 ED Course: 19:42 Patient arrived in ED. ja2 20:09 Triage completed. kd3 20:09 Arm band placed on right wrist. kd3 20:14 Hailey Mon FNP-C is PHCP. snw 20:14 Garth Beyer MD is Attending Physician. snw 20:29 Aidan Medina, RN is Primary Nurse. jb4 20:45 Patient has correct armband on for positive identification. Bed in low position. Call jb4 light in reach. Side rails up X 1. 21:17 Chest Pa And Lat (2 Views) XRAY In Process Unspecified. EDMS 21:30 No provider procedures requiring assistance completed. Patient did not have IV access jb4 during this emergency room visit. Administered Medications: 21:53 Drug: Ketorolac 30 mg Route: IM; Site: right gluteus; jb4 22:17 Follow up: Response: No adverse reaction; Medication administered at discharge. jb4 Medication: 21:30 VIS not applicable for this client. jb4 Outcome: 21:35 Discharge ordered by . snw 22:00 Discharged to home ambulatory. jb4 22:00 Condition: stable 22:00 Discharge instructions given to patient, Instructed on discharge instructions, follow up and referral plans. medication usage, Demonstrated understanding of instructions, follow-up care, medications, Prescriptions given X 2. 22:17 Patient left the ED. jb4 Signatures: Dispatcher [employer] EDDE Hailye Mon, DISTRICT COURT JUDGE-C DISTRICT COURT JUDGE-Csnw Aidan Medina, RN RN jb4 Silvia Humphreys Kyli, RN RN kd3 Corrections: (The following items were deleted from the chart) 22:17 21:45 Discharged to home ambulatory, jb4 jb4 22:17 21:45 Condition: stable jb4 jb4 22:17 21:45 Discharge instructions given to patient, Instructed on discharge instructions, jb4 follow up and referral plans. medication usage, Demonstrated understanding of instructions, follow-up care, medications, Prescriptions given X 2, jb4
--- NOTE | 2022-07-28 21:36 | EDPHYS ---
Physician Documentation [facility] Name: Nic Servin Age: 21 yrs Sex: Male : 2000 Arrival Date: 07/28/2022 Time: 19:42 Bed 13 Private MD: ED Physician Garth Beyer HPI: 07/28 21:04 This 21 yrs old Male presents to ER via Ambulatory with complaints of Breathing snw Difficulty. 21:04 The patient has shortness of breath with light activity. Onset: The symptoms/episode snw began/occurred gradually. Duration: The symptoms are continuous, and are steadily getting worse. Associated signs and symptoms: Pertinent positives: chest pain. Severity of symptoms: At their worst the symptoms were mild moderate in the emergency department the symptoms are unchanged. The patient has experienced a previous episode, years ago and then pt was unable to move the next day - worried this will occur again. . 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 Historical: - Allergies: 20:09 NKDA; kd3 - Immunization history:: Adult Immunizations up to date. - Social history:: Smoking status: Reported history of juuling and/or vaping. ROS: 21:02 Constitutional: Negative for fever, chills, and weight loss, Eyes: Negative for injury, snw pain, redness, and discharge, ENT: Negative for injury, pain, and discharge, Neck: Negative for injury, pain, and swelling. 21:02 Abdomen/GI: Negative for abdominal pain, nausea, vomiting, diarrhea, and constipation, Back: Negative for injury and pain, : Negative for injury, bleeding, discharge, and swelling, MS/Extremity: Negative for injury and deformity, Skin: Negative for injury, rash, and discoloration, Neuro: Negative for headache, weakness, numbness, tingling, and seizure. 21:02 Cardiovascular: Positive for chest pain, of the anterior aspect of right upper chest and right breast. 21:02 Respiratory: Positive for shortness of breath, on exertion. Exam: 21:02 Constitutional: This is a well developed, well nourished patient who is awake, alert, snw and in no acute distress. Head/Face: Normocephalic, atraumatic. Eyes: Pupils equal round and reactive to light, extra-ocular motions intact. Lids and lashes normal. Conjunctiva and sclera are non-icteric and not injected. Cornea within normal limits. Periorbital areas with no swelling, redness, or edema. ENT: Nares patent. No nasal discharge, no septal abnormalities noted. Tympanic membranes are normal and external auditory canals are clear. Oropharynx with no redness, swelling, or masses, exudates, or evidence of obstruction, uvula midline. Mucous membranes moist. Neck: Trachea midline, no thyromegaly or masses palpated, and no cervical lymphadenopathy. Supple, full range of motion without nuchal rigidity, or vertebral point tenderness. No Meningismus. Chest/axilla: Normal chest wall appearance and motion. Nontender with no deformity. No lesions are appreciated. Cardiovascular: Regular rate and rhythm with a normal S1 and S2. No gallops, murmurs, or rubs. Normal PMI, no JVD. No pulse deficits. Respiratory: Lungs have equal breath sounds bilaterally, clear to auscultation and percussion. No rales, rhonchi or wheezes noted. No increased work of breathing, no retractions or nasal flaring. Abdomen/GI: Soft, non-tender, with normal bowel sounds. No distension or tympany. No guarding or rebound. No evidence of tenderness throughout. Back: No spinal tenderness. No costovertebral tenderness. Full range of motion. Skin: Warm, dry with normal turgor. Normal color with no rashes, no lesions, and no evidence of cellulitis. MS/ Extremity: Pulses equal, no cyanosis. Neurovascular intact. Full, normal range of motion. Neuro: Awake and alert, GCS 15, oriented to person, place, time, and situation. Cranial nerves II-XII grossly intact. Motor strength 5/5 in all extremities. Sensory grossly intact. Cerebellar exam normal. Normal gait. Vital Signs: 20:07 BP 115 / 79; Pulse 77; Resp 16; Temp 98.1(O); Pulse Ox 98% on R/A; Weight 68.04 kg; kd3 Height 5 ft. 11 in. (180.34 cm); 20:07 Body Mass Index 20.92 (68.04 kg, 180.34 cm) kd3 MDM: 20:21 Patient medically screened. [place] 21:32 Differential diagnosis: asthma, Bronchitis costochondritis/rhabdomyolysis. Data snw interpreted: Pulse oximetry: on room air is 98 %. Interpretation: normal. Data reviewed: vital signs, nurses notes, lab test result(s), urinalysis, no blood/small ketones, radiologic studies. Counseling: I had a detailed discussion with the patient and/or guardian regarding: the historical points, exam findings, and any diagnostic results supporting the discharge/admit diagnosis, lab results, radiology results, the need for outpatient follow up, to return to the emergency department if symptoms worsen or persist or if there are any questions or concerns that arise at home. Special discussion: Based on the history and exam findings, there is no indication for further emergent testing or inpatient evaluation. I discussed with the patient/guardian the need to see the primary care provider for further evaluation of the symptoms. 07/28 20:58 Order name: Urine Microscopic Only; Complete Time: 21:45 snw 07/28 21:25 Order name: Urine Dipstick-Ancillary; Complete Time: 21:27 EDMS 07/28 20:58 Order name: Chest Pa And Lat (2 Views) XRAY; Complete Time: 21:31 snw 07/28 20:58 Order name: Urine Dipstick-Ancillary (obtain specimen); Complete Time: 21:33 snw Administered Medications: 21:53 Drug: Ketorolac 30 mg Route: IM; Site: right gluteus; jb4 22:17 Follow up: Response: No adverse reaction; Medication administered at discharge. jb4 Disposition Summary: 07/28/22 21:35 Discharge Ordered Location: Home snw Condition: Stable snw Diagnosis - Costochondritis snw - Volume depletion, unspecified snw Followup: snw - With: Emergency Department - When: As needed - Reason: Worsening of condition Followup: snw - With: Private Physician - When: 5 - 6 days - Reason: Recheck today's complaints, Continuance of care, Re-evaluation by your physician Discharge Instructions: - Discharge Summary Sheet snw - Costochondritis snw - Dehydration, Adult snw - Rehydration, Adult snw Forms: - Medication Reconciliation Form snw - Thank You Letter snw - Antibiotic Education snw - Prescription Opioid Use snw - Work release form snw Prescriptions: - Mobic 7.5 mg Oral Tablet - take 1 tablet by ORAL route once daily take with food; 20 tablet; Refills: 0, snw Product Selection Permitted - orphenadrine citrate 100 mg Oral Tablet Sustained Release - take 1 tablet by ORAL route 2 times per day As needed; 20 tablet; Refills: 0, snw Product Selection Permitted Signatures: Dispatcher [employer] Garth Red MD MD cha Waters, Shelly, SHAFT TENDER-C SHAFT TENDER-Csnw Aidan Medina, RN RN jb4 Jazzy Oliveira RN RN kd3
[2022-07-28 21:44] LABS: Urine Bacteria None Seen /HPF (<20); Urine Crystals Unidentified Few /HPF (None Seen); Urine Mucus Slight /HPF (None Seen); Urine RBC <5 /HPF (None Seen); Urine WBC Clump Rare /HPF (None Seen)
[2022-07-28] MEDS ORDERED: KETOROLAC 30 MG/ML INJ ONE (21:46)
[2022-07-28 22:59] VITALS: BP 115/79; TEMP 98.1; O2SAT 98
== END 2022-07-28 22:17 | disposition home or self-care (01) ==
LOC: ER 19:38
DX: M94.0 Chondrocostal junction syndrome [Tietze] (principal); E86.9 Volume depletion, unspecified
CPT/HCPCS: 71046; 81003; 81015; 96372; 99283